=== PATIENT | female | born 1980 | race Caucasian/White ===

== ENCOUNTER 2018-05-19 05:07 | Emergency (ER) | payer MEDICAID ==
[2018-05-19] MEDS ORDERED: KETOROLAC TROMETHAMINE INJ/PF 30 MG/1 ML SDV IV ONE (05:22)
--- NOTE | 2018-05-19 05:25 | ER Document Report ---
ED Medical Screen (RME) - General Stated Complaint: LOWER BACK PAIN Time Seen by Provider: 05/19/18 05:21 Mode of Arrival: Medic Information source: Patient Notes: Patient is a 38-year-old female who presents with right low back pain that radiates to her right groin. Patient denies any vomiting or diarrhea but reports nausea. Patient denies any fever or urinary symptoms. Patient reports no history of renal stones. I have greeted and performed a rapid initial assessment of this patient. A comprehensive ED assessment and evaluation of the patient, analysis of test results and completion of the medical decision making process will be conducted by additional ED providers. Dictation of this chart was performed using voice recognition software; therefore, there may be some unintended grammatical errors. EXAM: LSCTA bilaterally TTP to right lumbar region TTP to RLQ/pelvis No CVA tenderness Course - Laboratory Result Diagrams: 05/19/18 05:17 05/19/18 05:17
[2018-05-19 05:32] LABS: ABSOLUTE BASOPHILS # (AUTO) 0.1 10^3/uL (0.0-0.2); ABSOLUTE EOSINOPHILS # (AUTO) 1.6 10^3/uL (0.0-0.6); ABSOLUTE LYMPHOCYTES (AUTO) 2.5 10^3/uL (0.5-4.7); ABSOLUTE MONOCYTES (AUTO) 0.6 10^3/uL (0.1-1.4); ABSOLUTE NEUT (AUTO) 4.2 10^3/uL (1.7-8.2); BASOPHILS % (AUTO) 1.2 % (0-2); EOSINOPHILS % (AUTO) 17.7 % (0-6); HEMATOCRIT 38.6 % (36.0-47.0); LYMPHOCYTES % (AUTO) 27.4 % (13-45); MEAN CORPUSCULAR HEMOGLOBIN 27.4 pg (27.0-33.4); MEAN CORPUSCULAR HGB CONC 33.6 g/dL (32.0-36.0); MEAN CORPUSCULAR VOLUME 82 fl (80-97); MONOCYTES % (AUTO) 6.7 % (3-13); PLATELET COUNT 303 10^3/uL (150-450); RED BLOOD COUNT 4.73 10^6/uL (3.72-5.28); RED CELL DISTRIBUTION WIDTH 14.9 % (11.5-14.0); TOTAL CELLS COUNTED % (AUTO) 100 %
[2018-05-19] MEDS ORDERED: METOCLOPRAMIDE HCL INJ/PF 10 MG/2 ML SDV IV ONE (05:35)
[2018-05-19 05:41] LABS: ALANINE AMINOTRANSFERASE 21 U/L (9-52); ALBUMIN 4.2 g/dL (3.5-5.0); ALKALINE PHOSPHATASE 78 U/L (38-126); ANION GAP 13 (5-19); ASPARTATE AMINO TRANSFERASE 20 U/L (14-36); BILIRUBIN,DIRECT 0.3 mg/dL (0.0-0.4); BILIRUBIN,TOTAL 0.3 mg/dL (0.2-1.3); BLOOD UREA NITROGEN 17 mg/dL (7-20); CALCIUM 9.4 mg/dL (8.4-10.2); CARBON DIOXIDE 27 mmol/L (22-30); CHLORIDE 104 mmol/L (98-107); GLUCOSE 95 mg/dL (75-110); LIPASE 454.3 U/L (23-300); POTASSIUM 4.4 mmol/L (3.6-5.0); SODIUM 143.8 mmol/L (137-145); TOTAL PROTEIN 7.4 g/dL (6.3-8.2)
[2018-05-19] MEDS ORDERED: NORMAL SALINE 1000 ML 1,000 ML IV ONE ×2 (06:21→08:53)
[2018-05-19] MEDS ORDERED: MORPHINE SULFATE 10 MG/ML INJ IV ONE (06:44)
[2018-05-19 07:06] LABS: APPEARANCE,URINE SLIGHTLY-CLOUDY; BILIRUBIN,URINE NEGATIVE (NEGATIVE); COLOR,URINE YELLOW; GLUCOSE, URINE NEGATIVE (NEGATIVE); KETONES,URINE NEGATIVE (NEGATIVE); LEUKOCYTE ESTERASE,URINE NEGATIVE (NEGATIVE); NITRITE,URINE NEGATIVE (NEGATIVE); PROTEIN,URINE NEGATIVE (NEGATIVE); URINE SPECIFIC GRAVITY 1.024; UROBILINOGEN,URINE NEGATIVE mg/dL (<2.0)
--- NOTE | 2018-05-19 08:11 | RADIOLOGY REPORT (SQ) ---
EXAM DESCRIPTION: CT LTD RENAL STONE PROTOCOL ON COMPLETED DATE/TIME: 05/19/2018 7:17 am REASON FOR STUDY: rlq pain COMPARISON: None. TECHNIQUE: CT scan of the abdomen and pelvis performed without intravenous or oral contrast. Images reviewed with lung, soft tissue, and bone windows. Reconstructed coronal and sagittal MPR images revi ewed. All images stored on PACS. All CT scanners at this facility use dose modulation, iterative reconstruction, and/or weight based d osing when appropriate to reduce radiation dose to as low as reasonably achievable (ALARA). [facility]: Dose Right [facility]: CareDose [facility]: Dose Right [facility]: Teradose 4D [facility]: Smart CareToSave RADIATION DOSE: CT Rad equipment meets quality standard of care and radiation dose reduction techniq ues were employed. CTDIvol: 15.5 mGy. DLP: 873 mGy-cm.mGy. LIMITATIONS: None. FINDINGS: LOWER CHEST: No significant findings. No nodules or infiltrates. NON-CONTRASTED LIVER, SPLEEN, ADRENALS: Evaluation limited by lack of IV contrast. No identified sign ificant masses. Minimal left adrenal calcification. PANCREAS: No masses. No peripancreatic inflammatory changes. GALLBLADDER: No identified stones by CT criteria. No inflammatory changes to suggest cholecystitis. RIGHT KIDNEY AND URETER: No suspicious masses. Assessment limited by lack of IV contrast. No signif icant calcifications. No hydronephrosis or hydroureter. LEFT KIDNEY AND URETER: No suspicious masses. Assessment limited by lack of IV contrast. No signifi cant calcifications. No hydronephrosis or hydroureter. AORTA AND RETROPERITONEUM: No aneurysm. No retroperitoneal masses or adenopathy. BOWEL AND PERITONEAL CAVITY: No obvious masses or inflammatory changes. No free fluid. APPENDIX: Normal. PELVIS, BLADDER, AND ABDOMINAL WALL:No abnormal masses. No free fluid. Bladder normal. IUD in the ut erus. BONES: No significant findings. OTHER: No other significant finding. IMPRESSION: NO SIGNIFICANT OR ACUTE PROCESS IN THE ABDOMEN OR PELVIS. COMMENT: Quality ID # [id number]: Final reports with documentation of one or more dose reduction techniques (e.g., Automated exposure control, adjustment of the mA and/or kV according to patient size, use of iterative reconstruction technique) TECHNICAL DOCUMENTATION: JOB ID: [id number] [employer]- All Rights Reserved Reading location - IP/workstation name: [email or web address]
--- NOTE | 2018-05-19 08:40 | ER Document Report ---
ED General - General Chief Complaint: Flank Pain Stated Complaint: LOWER BACK PAIN Time Seen by Provider: 05/19/18 05:21 Mode of Arrival: Medic - HPI Patient complains to provider of: Right flank pain Notes: Patient coming in for right flank pain sudden onset earlier this morning with nausea vomiting. Patient denies a history kidney stones however patient thinks this is more likely was going on. Patient denies any fevers chills nausea vomiting prior to this episode. Patient states day prior she went about her daily activities without any issues. Patient denies any past medical history. Patient resting comfortably upon my evaluation after receiving ketorolac by EMS. - Related Data Allergies/Adverse Reactions: Penicillins Allergy (Verified 05/19/18 05:28) Past Medical History - General Information source: Patient - Social History Smoking Status: Never Smoker Chew tobacco use (# tins/day): No Frequency of alcohol use: None Drug Abuse: None Family History: Reviewed & Not Pertinent Patient has suicidal ideation: No Patient has homicidal ideation: No Renal/ Medical History: Denies: Hx Peritoneal Dialysis Psychiatric Medical History: Reports: Hx Depression Review of Systems - Review of Systems Constitutional: No symptoms reported EENT: No symptoms reported Cardiovascular: No symptoms reported Respiratory: No symptoms reported Gastrointestinal: No symptoms reported Genitourinary: Flank pain Female Genitourinary: No symptoms reported Musculoskeletal: No symptoms reported Skin: No symptoms reported Hematologic/Lymphatic: No symptoms reported Neurological/Psychological: No symptoms reported -: Yes All other systems reviewed and negative Physical Exam - Vital signs Vitals: Temp Pulse Resp BP Pulse Ox 98.6 F 65 12 120/71 90 L 05/19/18 05:22 05/19/18 05:22 05/19/18 05:22 05/19/18 05:22 05/19/18 05:22 Interpretation: Normal - General General appearance: Appears well, Alert - HEENT Head: Normocephalic, Atraumatic Eyes: Normal Pupils: PERRL - Respiratory Respiratory status: No respiratory distress Chest status: Nontender Breath sounds: Normal Chest palpation: Normal - Cardiovascular Rhythm: Regular Heart sounds: Normal auscultation Murmur: No - Abdominal Inspection: Normal Distension: No distension Bowel sounds: Normal Tenderness: Nontender Organomegaly: No organomegaly - Back Back: Normal, Nontender - Extremities General upper extremity: Normal inspection, Nontender, Normal color, Normal ROM , Normal temperature General lower extremity: Normal inspection, Nontender, Normal color, Normal ROM , Normal temperature, Normal weight bearing. No: Renetta's sign - Neurological Neuro grossly intact: Yes Cognition: Normal Orientation: AAOx4 Cosme Coma Scale Eye Opening: Spontaneous [place] Coma Scale Verbal: Oriented [place] Coma Scale Motor: Obeys Commands [place] Coma Scale Total: 15 Speech: Normal Motor strength normal: LUE, RUE, LLE, RLE Sensory: Normal - Psychological Associated symptoms: Normal affect, Normal mood - Skin Skin Temperature: Warm Skin Moisture: Dry Skin Color: Normal Course - Re-evaluation Re-evalutation: 05/19/18 15:58 Laboratory studies show some hematuria CAT scan does not show any signs of obstructive uropathy my personal review she is past with dilation of the renal pelvis consistent maybe with a recent passed stone. Patient feeling better with the pain medication and nausea medication. We will send patient home with Ultram and Zofran. No other critical etiology seen. The patient presents with abdominal pain without signs of peritonitis or other life-threatening or serious etiology. The patient appears stable for discharge and has been instructed to return immediately if the symptoms worsen in any way, or in 8- 12hr if not improved for re-evaluation. The patient has been instructed to return if the symptoms worsen or change in any way. - Vital Signs Vital signs: Temp Pulse Resp BP Pulse Ox 99.0 F 99 16 111/60 99 05/19/18 09:47 05/19/18 09:47 05/19/18 09:47 05/19/18 09:47 05/19/18 09:47 - Laboratory Result Diagrams: 05/19/18 05:17 05/19/18 05:17 Laboratory results interpreted by me: 05/19/18 05/19/18 05/19/18 05:17 05:17 06:33 RDW 14.9 H Eosinophils % 17.7 H Absolute Eosinophils 1.6 H Lipase 454.3 H Urine Blood MODERATE H Discharge - Discharge Clinical Impression: Flank pain Condition: Good Disposition: HOME, SELF-CARE Instructions: Flank Pain ([facility]), Kidney Stone ([facility]), Oral Narcotic Medication ( [facility]) Additional Instructions: Your evaluation today with she is no signs of retained kidney stone but do believe that she more likely passed a kidney stone prior to arrival. Otherwise her CT scan does not show any acute abnormality. Your laboratory studies not show any signs of [place] etiology requiring antibiotics or a surgical pathology requiring surgery. Please take medication as prescribed ultram for pain he can also take Tylenol with the Ultram she went back to her facility that she needed to be treated. Also recommend the Zofran provided for nausea. Follow-up with your primary care physician drink plenty water stay hydrated Prescriptions: Ondansetron [Zofran Odt] 4 mg PO Q6 PRN #30 tab.rapdis PRN Reason: For Nausea/Vomiting Tramadol HCl [Ultram 50 mg Tablet] 50 mg PO ASDIR PRN #20 tablet PRN Reason:
[2018-05-19] MEDS ORDERED: ONDANSETRON 4 MG TAB.RAPDIS PO ONE (08:53)
[2018-05-19 09:48] VITALS: BP 111/60
[2018-05-19] MEDS ORDERED: ACETAMINOPHEN 325 MG TABLET PO ONE (10:35)
== END 2018-05-19 10:40 | disposition home or self-care (01) ==
LOC: ER 05:07
DX: R10.9 Unspecified abdominal pain (principal); R11.2 Nausea with vomiting, unspecified; R31.9 Hematuria, unspecified; Z88.0 Allergy status to penicillin
CPT/HCPCS: 99284; 96361; 96374; 96375; 36415; 83690; 85025; 81025; 80053; 81001; 76380; J3490; S0119; J1885; J2270; J7030